=== PATIENT | female | born 2000 | race Two or more races ===

== ENCOUNTER 2024-11-07 12:00 | Observation (INO) | payer MEDICAID ==
--- NOTE | 2024-11-07 13:27 | DVH ---
BIOPHYSICAL PROFILE HISTORY: Term Comparison Study: None available TECHNIQUE: Multiple real-time grayscale sonographic images through the gravid uterus of the fetus wi th duplex Doppler color flow and M-mode spectral analysis FINDINGS: BIOPHYSICAL PROFILE: breathing score: 2 movement score: 2 tone score: 2 Quantitative GLENIS score: 2 (GLENIS: 11.0 Cm.) Total score: 8 The cervix is poorly visualized. Single live fetus in cephalic presentation. heart rate 148 beats per minute. Anterior placenta without previa or abruption IMPRESSION: Biophysical profile score: 8/8
[2024-11-07] MEDS ORDERED: PREN-96 PO (14:13)
--- NOTE | 2024-11-08 12:38 | DVHDS2 ---
Discharge Summary Date of Admission Nov 07, 2024 at 12:00 Date of Discharge: Nov 07, 2024 Admitting Diagnosis Term here for and maternal reassurance Wounds: n/a Labs/Diagnostic Data: n/a Brief Hx & Hospital Course: nst reassuring Consults/Reason for consult term preg reassurance Operations or Procedures n/a Condition at Discharge: Good Final Diagnosis/Problems List Term IUP reasuring Discharge Disposition: Home SNF Discharge Physician in charge at time of: alfredo weathers Will this Physician continue t: No Discharge Instruct/Medications Diet: Regular Activity: No Restrictions, As Tolerated Activity comment: kick counts labor precautions Follow Up/Referral: 48 hrs with primary OB Discharge Statement: "Patient was advised to return to the ER or call 911 if any headaches, dizziness, shortness of breath, chest pain, abdominal pain, bleeding, fevers, or worsening of medical condition. Patient was counseled about treatment plan, medications, possible side effects, patientverbalized understanding. All questions were answered to the best of my ability. This discharge took greater then 30 minutes in planning, reviewing documentation, counseling the patient, and discussing with other team members." ASSESSMENT ASSESSMENT Assessment Visit Coding OBGYN Date of Service: Nov 07, 2024 Billing Provider: ALFREDO WEATHERS DO VP PUBLISHER DEVELOPMENT Common Visit Codes: [id number] INP/OBS CARE(MOD), 58094-[id number] INP/OBS CARE(HIGH), 92424-BCT/OBS SAME DATE (LOW) VP PUBL[employer]ER [employer]ELOPMENT Procedure Codes: 46520-31- NON-STRESS TEST ALFREDO WEATHERS DO Nov 08, 2024 12:38
== END 2024-11-07 14:40 | disposition home or self-care (01) ==
LOC: LDRP 12:00
PROVIDERS: ADMIT Obstetrics & Gynecology; ATTEND Obstetrics & Gynecology
DX: O48.0 Post-term pregnancy (principal); Z98.890 Other specified postprocedural states; Z79.899 Other long term (current) drug therapy; Z3A.40 40 weeks gestation of pregnancy
CPT/HCPCS: 59025; 76818; 81002; G0378

== ENCOUNTER 2024-11-09 08:07 | Observation (INO) | payer MEDICAID ==
[~2024-11-09 08:07] MED LIST: PREN-96 PO
--- NOTE | 2024-11-09 09:10 | DVH ---
CLINICAL HISTORY: postdates COMPARISON: US BIOPHYSICAL PROFILE on DOS: 11/07/24 TECHNIQUE: biophysical profile was performed. Transabdominal sonographic images of the fetus we re obtained. FINDINGS: The fetus is in cephalic position. heart rate measures 131 BPM. Amniotic fluid index measures 10.1 cm. The placenta is anterior in position. BPP profile is an overall score of 8/8, with 2/2 points for breathing, with at least one episode of breathing over a 30 second duration during a 30 minute observation, 2/2 points for m ovements, with 3 or more discrete body or limb movements, 2/2 points for tone, with one or more episodes of extremity extension with return to flexion, or opening and closing of hand, and 2/ 2 points for amniotic fluid, with at least 1 pocket of amniotic fluid that measures 2 cm in 2 perpend icular planes. IMPRESSION: BPP score of 8/8.
--- NOTE | 2024-11-09 16:05 | DVHDS2 ---
Physician Discharge Progress N Final Diagnosis: IUP 40+ weeks Operations or Procedures: Operations or Procedures NST/BPP GLENIS Condition on Discharge: Stable Disposition: Home Discharge Instructions: Diet: Regular Activity: No Restrictions, As Tolerated Follow Up/Referral: as scheduled Medications: N/A Follow Up Care: Discharge Statement: "Patient was advised to return to the ER or call 911 if any headaches, dizziness, shortness of breath, chest pain, abdominal pain, bleeding, fevers, or worsening of medical condition. Patient was counseled about treatment plan, medications, possible side effects, patientverbalized understanding. All questions were answered to the best of my ability. This discharge took greater then 30 minutes in planning, reviewing documentation, counseling the patient, and discussing with other team members." Visit Coding OBGYN Date of Service: Nov 09, 2024 Billing Provider: DANIE GONZALEZ DO [employer]ER Common Visit Codes: 66187-QOV/OBS SAME DATE (MOD) [employer] Procedure Codes: 59531-03- NON-STRESS TEST DANIE GONZALEZ DO Nov 09, 2024 16:05
== END 2024-11-09 09:36 | disposition home or self-care (01) ==
LOC: LDRP 08:07
PROVIDERS: ADMIT Obstetrics & Gynecology; ATTEND Obstetrics & Gynecology
DX: O48.0 Post-term pregnancy (principal); O42.913 Preterm premature rupture of membranes, unspecified as to length of time between rupture and onset of labor, third trimester; Z98.890 Other specified postprocedural states; Z79.899 Other long term (current) drug therapy; Z3A.40 40 weeks gestation of pregnancy
CPT/HCPCS: 59025; 76819; 81002; 94760; G0378; 76818

== ENCOUNTER 2024-11-11 08:31 | Observation (INO) | payer MEDICAID ==
--- NOTE | 2024-11-11 17:09 | DVH ---
BIOPHYSICAL PROFILE HISTORY: post dates Comparison Study: 11/09/2024 TECHNIQUE: Multiple real-time grayscale sonographic images through the gravid uterus of the fetus wi th duplex Doppler color flow and M-mode spectral analysis FINDINGS: BIOPHYSICAL PROFILE: breathing score: 2 movement score: 2 tone score: 2 Quantitative GLENIS score: 2 (GLENIS: 8.7 Cm.) Total score: 8 The cervix is not visualized Single live fetus in cephalic presentation. heart rate 157 beats per minute. Grade 3, anterior placenta without previa or abruption IMPRESSION: Biophysical profile score: 8
--- NOTE | 2024-11-11 19:13 | DVHDS2 ---
Physician Discharge Progress N Final Diagnosis: testing for term Operations or Procedures: Operations or Procedures S: pt is a 23 yo @ 40.4 wks IUP in triage for NST/BPP. Pt feeling mild ravi muñoz contractions. Pt denies VB, leakage of fluid, and endorses +FM. O: VSS. Vaginal exam by RN: /-2 EFM: FHR 150 bpm, moderate variabilty with accels, no decels. [place]: occasional contractions with irritability A: 23 yo @ 40.4 wks Category I EFM tracing P: D/C HOME IOL scheduled for 11/12/2024 kick counts and Preeclampsia warning signs reviewed. Labor precautions given and when to return to the hospital. Other Interventions Other Interventions [place] [id number] Ph: [phone] DIAGNOSTIC IMAGING Diagnostic Imaging Report : [id number] Signed PATIENT: CHRISTOS TRIPP ACCT: [id number] UNIT: [id number] : 2000 LOC: [facility] ROOM / BED: TRIAGE1 / A AGE / SEX: 23 / F ADM STATUS: ADM IN SERVICE 1514 ORDERING PHYSICIAN: BOBBI WEBB DO PROCEDURE(s): BPP - BIOPHYSICAL PROFILE REASON: post dates ORDER NUMBER(s): [id number], ACCESSION NUMBER(s): [id number] BIOPHYSICAL PROFILE HISTORY: post dates Comparison Study: 11/09/2024 TECHNIQUE: Multiple real-time grayscale sonographic images through the gravid uterus of the fetus with duplex Doppler color flow and M-mode spectral analysis FINDINGS: BIOPHYSICAL PROFILE: breathing score: 2 movement score: 2 tone score: 2 Quantitative GLENIS score: 2 (GLENIS: 8.7 Cm.) Total score: 8 The cervix is not visualized Single live fetus in cephalic presentation. heart rate 157 beats per minute. Grade 3, anterior placenta without previa or abruption IMPRESSION: Biophysical profile score: 8 ATED BY: JOAQUIM OSPINA MD DICTATED DATE/TIME: 11/11/24 1704 SIGNED BY: JOAQUIM OSPINA MD SIGNED DATE/TIME: 11/11/24 4021 CC: Commentary: Commentary Condition on Discharge: Stable Disposition: Home Discharge Instructions: Diet: Regular Activity: No Restrictions, As Tolerated Follow Up/Referral: Medications: see med list Follow Up Care: Specialist: F/u IOL scheduled for 11/12/2024 Discharge Statement: "Patient was advised to return to the ER or call 911 if any headaches, dizziness, shortness of breath, chest pain, abdominal pain, bleeding, fevers, or worsening of medical condition. Patient was counseled about treatment plan, medications, possible side effects, patientverbalized understanding. All questions were answered to the best of my ability. This discharge took greater then 30 minutes in planning, reviewing documentation, counseling the patient, and discussing with other team members." Visit Coding OBGYN Date of Service: Nov 11, 2024 Billing Provider: JAS HAMMOND CNM MEDICAL EXAMINER Common Visit Codes: [id number] OBS CARE (MOD) LILIAN DENG Nov 11, 2024 19:13
== END 2024-11-11 17:30 | disposition home or self-care (01) ==
LOC: UNDOADMOB 15:07 → LDRP 15:07 → UNDODISOB 17:30
PROVIDERS: ADMIT Obstetrics & Gynecology; ATTEND Obstetrics & Gynecology
DX: O48.0 Post-term pregnancy (principal); Z98.890 Other specified postprocedural states; Z79.899 Other long term (current) drug therapy; Z3A.40 40 weeks gestation of pregnancy
CPT/HCPCS: 59025; 76819; 81002; G0378; 76818

== ENCOUNTER 2024-11-12 11:09 | Inpatient (IN) | payer MEDICAID ==
[~2024-11-12] VITALS: Ht 162.6 cm; Wt 97.5 kg
[2024-11-12] MEDS ORDERED: NALBUPHINE HCL 10 MG/1ml INJECTION IV PRN (12:00)
[2024-11-12 12:37] LABS: Basophils # (auto) 0 10 ^3/uL (0-0.2); Basophils % (auto) 0.3 % (0.0-2.0); Eosinophils # (auto) 0 10 ^3/uL (0-0.8); Eosinophils % (auto) 0.1 % (0.0-7.0); Hematocrit 37.8 % (36.0-46.0); Hemoglobin 12.9 g/dL (12.2-16.2); Lymphocytes # (auto) 0.9 10 ^3/uL (0.4-5.4); Lymphocytes % (auto) 6.1 % (10.0-50.0); Mean Corpuscular Hemoglobin 29.4 pg (28.0-32.0); Mean Corpuscular Hgb Conc. 34.1 g/dL (32.0-36.0); Mean Corpuscular Volume 86.2 fL (80.0-100.0); Monocytes # (auto) 0.3 10 ^3/uL (0-1.3); Monocytes % (auto) 2.3 % (0.0-12.0); Neutrophils # (auto) 13.5 10 ^3/uL (1.6-8.6); Neutrophils % (auto) 91.2 % (37.0-80.0); Platelet Count (auto) 244 10^3/uL (140-450); Red Blood Cells 4.39 10^6/uL (4.0-5.20); White Blood Cell 14.9 10^3/uL (4.4-10.8)
[2024-11-12] MEDS: LACTATED RINGER'S 1,000 ML IV SCH (12:49)
[2024-11-12] MEDS: DERMOPLAST 60ML BOTTLE TOP PRN (12:50)
[2024-11-12] MEDS: WITCH HAZEL-GLYCERIN PAD TOP PRN (12:50)
[2024-11-12] MEDS: PHISODERM TOP SOLN 240ML BTL TOP PRN (12:50)
[2024-11-12 12:55] LABS: INR 0.93 (0.9-1.15); Prothrombin Time 9.9 sec (9.3-11.8)
[2024-11-12 12:56] LABS: Albumin 4.1 g/dL (3.2-4.8); Anion Gap 12 (5-15); BUN/Creatinine Ratio 10.9 (10.0-20.0); Calcium 9.7 mg/dL (8.7-10.4); Carbon Dioxide 20 mmol/L (20-31); Chloride 105 mmol/L (98-107); Glucose 91 mg/dL (74-106); Sodium 137 mmol/L (136-145)
[2024-11-12 12:57] LABS: Bilirubin, Total 0.4 mg/dL (0.2-1.0); Total Protein 6.7 g/dL (5.7-8.2)
[2024-11-12 13:00] LABS: Alanine Aminotransferase 9 U/L (7-40); Alkaline Phosphatase 190 U/L (46-116); Aspartate Aminotransferase 13 U/L (13-40); Blood Urea Nitrogen 7 mg/dL (9-23)
--- NOTE | 2024-11-12 13:30 | DVHHP ---
ADMIT DATE: 11/12/2024 CHIEF COMPLAINT: Labor. HISTORY OF PRESENT ILLNESS: The patient is a 23-year-old 1, para 0 with EDC 11/07/2024, estimated gestational age of 40+ weeks, admitted for labor. The patient was noted to be 5 cm. No rupture of membrane or vaginal bleeding. PAST MEDICAL HISTORY: None. PAST SURGICAL HISTORY: None. SOCIAL HISTORY: None. FAMILY HISTORY: None. OBSTETRIC AND GYNECOLOGIC HISTORY: Blood type A positive, GBS positive. REVIEW OF SYSTEMS: Consistent with HPI. PHYSICAL EXAMINATION: VITAL SIGNS: Stable, afebrile. HEENT: Within normal limits. CARDIOVASCULAR: Regular rate and rhythm. LUNGS: Clear to auscultation. BREASTS: Symmetrical. No masses. ABDOMEN: Gravid. Positive heart. PELVIC: Vaginal exam, cervix 5 cm, 80, -1, intact membrane. EXTREMITIES: No clubbing, cyanosis or edema. IMPRESSION: * Intrauterine at 40+ weeks, in labor. * GBS positive. PLAN: Expectant vaginal delivery. Informed consent obtained. DO NAV Carrillo TID: [id number] RECEIPT: [id number]
[2024-11-12 14:09] LABS: Urine Bacteria FEW /hpf (None Seen); Urine Blood 3+ /uL (Negative); Urine Clarity Turbid (Clear); Urine Color Yellow (Yellow); Urine Mucus FEW (None Seen); Urine Protein, UAD 1+ (Negative); Urine Specific Gravity 1.024 (1.001-1.035); Urine Squamous Epithelial Cell MOD /hpf (<5); Urine Urobilinogen Normal (Negative); Urine WBC 48 /HPF (0-5)
[2024-11-12 14:12] LABS: Barbiturate Scree,Urine Neg (NEGATIVE); Cannabinoid Screen, Urine Neg (NEGATIVE)
[2024-11-12 14:18] LABS: Amphetamine Screen, Urine Neg (NEGATIVE); Benzodiazephine Screen, Urine Neg (NEGATIVE); Cocaine Screen, Urine Neg (NEGATIVE); Opiate Scree,Urine Neg (NEGATIVE); Phencyclidine Screen, Urine Neg (NEGATIVE)
--- NOTE | 2024-11-12 15:40 | DVHPN2 ---
Chief Complaints Patient reports: No new complaints Nursing reports: No new complaints Objective Medications Current Medications Medications (Trade) Dose Ordered Sig/Uzma Route PRN Reason Start Time Stop Time Status Last Admin Benzocaine (Dermoplast) 1 applic PRN PRN TOP PERINEAL AREA DISCOMFORT 11/12/24 12:00 11/12/24 12:50 Lactated Ringer's 1,000 ml @ 125 mls/hr Q8H IV 11/12/24 12:00 11/12/24 12:49 Lidocaine HCl (Xylocaine) 40 ml ONCE PRN IJ PERINEAL AREA DISCOMFORT 11/12/24 12:00 Nalbuphine HCl (Nubain) 10 mg Q4HP PRN IV MODERATE PAIN (4-6 PAIN SCALE) 11/12/24 12:00 Sodium Lauryl Sulfate (Phisoderm) 240 ml PRN PRN TOP PERINEAL AREA DISCOMFORT 11/12/24 12:00 11/12/24 12:50 Witch Linda (Tucks) 1 pad PRN PRN TOP PERINEAL AREA DISCOMFORT 11/12/24 12:00 11/12/24 12:50 Others VE-7CM/90/-1 Studies Laboratory Tests 11/12/24 12:15 Test 11/12/24 12:15 Range/Units Serum Glucose 91 74-106 mg/dL Ass/Plan Assessment LABOR Plan REFUSES EPIDURAL CONT WITH PITOCIN Visit Coding OBGYN Date of Service: Nov 12, 2024 Billing Provider: BOBBI WEBB DO BEAUTY OPERATOR Common Visit Codes: [id number]-ACJ/OBS SAME DATE (HIGH) BOBBI WEBB DO Nov 12, 2024 15:40
--- NOTE | 2024-11-12 21:20 | LDN2 ---
Labor and Delivery Note Date 11/12/24 Age 23 1 Para 0 AB 0 EDC 11/07/24 EGA 40.5 weeks gestation Diagnosis Spontaneous vaginal delivery Vaginal Delivery: VTX Vacuum Assisted: No Placenta: Spontaneous Sex: Female Weight 7-10 (3450 gms) Apgars 8/9 Nuchal Cord Transected: Yes (Nuchal cord x 1 loose, reduced over shoulder) Amniotic Fluid: Clear Anesthesia None Episiotomy: No Extension: No EBL 100cc Labs Blood Bank 11/12/24 12:15: Blood Type A POSITIVE Complications None Conditions Stable Membership Assistant Godwin Comments/Significant Med Deisi None Visit Coding OBGYN Date of Service: Nov 12, 2024 Billing Provider: JONATHON DIEGO CNM HEEL SPRAYER FIRST Common Visit Codes: [id number] INP/OBS CARE (HIGH) HEEL SPR[employer]ER FIRST Procedure Codes: [id number] DEL INCLUDING JONATHON DIEGO CNM Nov 12, 2024 21:20
[2024-11-12] MEDS: LACT. RINGERS/OXYTOCIN 20UNITS 500 ML IV ONE ×2 (21:24→21:37)
[2024-11-12] MEDS: LIDOCAINE 2%HCL (LOCAL ANESTH.) INJ 20ML MDV IJ PRN (21:26)
[2024-11-12] MEDS ORDERED: ONDANSETRON HCL 4 MG/2 ML VIAL IV PRN (21:30)
[2024-11-12] MEDS: DOCUSATE SOD 100 MG CAP PO SCH (22:16)
[2024-11-12] MEDS: IBUPROFEN 600 MG TAB PO PRN (22:16)
[2024-11-12 23:30] VITALS: BP 131/66; PULSE 90; RESP 16; TEMP 97.9; O2SAT 95
[2024-11-13] VITALS (7 sets, daily range): BP systolic 113–127; BP diastolic 58–80; PULSE 70–82; RESP 16–20; TEMP 97.4–98.2; O2SAT 95–96
[2024-11-13 08:07] LABS: RPR Non Reactive (Non Reactive)
[2024-11-13] MEDS: ACETAMINOPHEN 325 MG TAB PO PRN (21:52)
[2024-11-14 03:02] VITALS: BP 124/79; PULSE 63; RESP 14; TEMP 98; O2SAT 98
[2024-11-14 07:00] VITALS: BP 111/69; PULSE 61; RESP 16; TEMP 97.6; O2SAT 96
[2024-11-14] MEDS ORDERED: IBU600T PO (07:37)
[2024-11-14] MEDS: MEASLES, MUMPS & RUBELLA VAC(MMRII) 0.5ML SC ONE (11:00)
[2024-11-16 11:07] LABS: Treponema Pallidum Ab LC Non Reactive (Non Reactive)
--- NOTE | 2024-11-19 13:37 | DVHDS2 ---
Physician Discharge Progress N Final Diagnosis: Term , delivered Secondary Diagnosis: N/A Operations or Procedures: Operations or Procedures Commentary: Commentary Normal labor/delivery, uncomplicated course Condition on Discharge: Stable Disposition: Home Discharge Instructions: Diet: Regular Activity: Light activity Activity comment: Pelvic rest Follow Up/Referral: [address] Hendrickson Medications: Ibuprofen PRN pain Follow Up Care: Discharge Statement: "Patient was advised to return to the ER or call 911 if any headaches, diz ziness, shortness of breath, chest pain, abdominal pain, bleeding, fevers, or worsening of medical condition. Patient was counseled about treatment plan, medications, possible side effects, patientverbalized understanding. All questions were answered to the best of my ability. This discharge took greater then 30 minutes in planning, reviewing documentation, counseling the patient, and discussing with other team members." Visit Coding OBGYN Date of Service: Nov 14, 2024 Billing Provider: DANIE GONZALEZ DO MANAGER STUDENT SERVICES Common Visit Codes: 12172-LVV/OBS DISCH DAY <30MIN DANIE GONZALEZ DO Nov 19, 2024 13:37
== END 2024-11-14 11:48 | disposition home or self-care (01) | DRG 560 ==
LOC: LDRP 11:09
PROVIDERS: ADMIT Obstetrics & Gynecology; ATTEND Obstetrics & Gynecology
PROC: 10E0XZZ Delivery of Products of Conception, External Approach (ICD-10-PCS; principal; 2024-11-12)
DX: O48.0 Post-term pregnancy (principal); Z37.0 Single live birth; O69.81X0 Labor and delivery complicated by cord around neck, without compression, not applicable or unspecified; O99.824 Streptococcus B carrier state complicating childbirth; Z53.29 Procedure and treatment not carried out because of patient's decision for other reasons; Z3A.40 40 weeks gestation of pregnancy; Z79.899 Other long term (current) drug therapy
CPT/HCPCS: 36415; 59025; 59409; 80053; 80307; 81001; 81002; 85025; 85610; 85730; 86592; 86780; 86850; 86900; 86901; 94760; 96360; 96361; 96365; 96366; 96372; G0378; J2590